=== PATIENT | male | born 1965 | race Caucasian/White ===

== ENCOUNTER 2022-03-18 13:42 | Outpatient (CLI) | payer OTHER, SELFPAY ==
--- NOTE | 2022-03-18 13:51 | MR_ITS ---
WS: [id number] MRI LUMBAR SPINE NONCONTRAST HISTORY: CHRONIC BACK PAIN/RADICULOPATHY COMPARISON: MRI 02/19/2013 TECHNIQUE: Sagittal and axial multisequence imaging is submitted. Same numbering pattern will be utilized on today's MRI examination as the prior study. As indicated o n the prior report there may be 13 thoracic vertebral bodies. L2 retrolisthesis by 3 mm. No acute fracture or marrow edema. Moderate disc space narrowing at L3-4. The remaining disc spaces demonstrate mild disc narrowing and desiccation. Conus terminates normally at T12. L1-L2: Normal. L2-L3: Mild annular disc bulging encroaching upon the ventral thecal sac. Mild ligamentum flavum and facet arthritis. Mild central, bilateral subarticular recess and foraminal stenosis. Similar to the p rior study. L3-L4: Mild annular disc bulging with ligamentum flavum and facet arthritis. Small central disc protr usion. Mild central, subarticular recess and foraminal stenosis. Slightly greater encroachment upon t he LEFT traversing L4 nerve root and the RIGHT exiting L3 nerve root. L4-L5: Mild disc bulging with moderate ligamentum flavum hypertrophy and facet arthritis. Disc encroa terri upon the thecal sac in the subarticular recesses. Mild central, bilateral subarticular recess a nd foraminal stenosis. L5-S1: Mild disc bulging. Moderate LEFT and mild RIGHT foraminal stenosis. Paravertebral soft tissues are negative. MR/MR lumbar spine wo con* [id number] IMPRESSION: 1. Only mild progression of degenerative disc disease and facet joint arthriti s since the prior study. 2. Moderate LEFT and mild RIGHT foraminal stenosis at L5-S1. 3. Mild central, bilateral subarticular recess and foraminal stenosis at L2-3, L3-4 and L4-5.
== END 2022-03-18 13:43 | disposition home or self-care (01) ==
PROVIDERS: PCP Family Medicine; Visit Provider Family Medicine
DX: M51.16 Intervertebral disc disorders with radiculopathy, lumbar region (principal); G89.29 Other chronic pain; M51.36 Other intervertebral disc degeneration, lumbar region; M48.07 Spinal stenosis, lumbosacral region; M48.061 Spinal stenosis, lumbar region without neurogenic claudication
CPT/HCPCS: 72148